=== PATIENT | female | born 1995 ===

== ENCOUNTER 2025-10-14 09:00 | Day surgery (SDC) | payer OTHER ==
[2025-10-14] MEDS ORDERED: CEFAZOLIN SODIUM 1,000 MG VIAL ONE (10:06)
[2025-10-14] MEDS ORDERED: ENALAPRILAT DIHYDRATE 1.25 MG/ML VIAL IV ONE ×2 (14:16→14:18)
[2025-10-14] MEDS ORDERED: SUGAMMADEX SODIUM 200 MG/2 ML VIAL IV ONE (14:16)
[2025-10-14] MEDS ORDERED: MORPHINE SULFATE 4 MG/ML CARTRIDGE IV SCH (17:00)
[2025-10-15] MEDS ORDERED: DOCUSATE SODIUM 100MG CAP PO SCH (08:00)
== END 2025-10-14 17:20 | disposition home or self-care (01) ==
LOC: CIR.AMB 09:00
PROVIDERS: ATTEND Obstetrics & Gynecology
DX: Z30.2 Encounter for sterilization (principal)